=== PATIENT | female | born 1975 | race Two or more races ===

== ENCOUNTER 2017-12-30 22:59 | Inpatient (IN) | payer MEDICARE, MEDICAID ==
[~2017-12-30] VITALS: Ht 175.3 cm; Wt 50.3 kg
[2017-12-30 23:33] LABS: Basophils # (auto) 0 uL; Eosinophils # (auto) 0.2 uL; Hemoglobin 10.4 g/dL (12.2-16.2); Lymphocytes # (auto) 1.6 uL; Neutrophils # (auto) 3.1 uL; Nucleated Red Blood Cells % 0.1 %
[2017-12-30 23:35] LABS: Basophils % (auto) 0.7 % (0.0-2.0); Eosinophils % (auto) 4.1 % (0.0-7.0); Hematocrit 31.9 % (36.0-46.0); Lymphocytes % (auto) 30.2 % (10.0-50.0); Mean Corpuscular Hemoglobin 25.6 pg (28.0-32.0); Mean Corpuscular Hgb Conc. 32.6 g/dL (32.0-36.0); Mean Corpuscular Volume 78.4 fL (80.0-100.0); Monocytes # (auto) 0.4 uL; Monocytes % (auto) 8.1 % (0.0-12.0); Neutrophils % (auto) 56.9 % (37.0-80.0); Platelet Count (auto) 197 10^3/uL (140-450); Red Blood Cells 4.07 10^6/uL (4.0-5.20); Red Cell Distribution Width 16.4 % (11.8-14.3); White Blood Cell 5.4 10^3/uL (4.4-10.8)
[2017-12-30 23:51] LABS: Albumin 2.9 g/dL (3.4-5.0); BUN/Creatinine Ratio 30.8; Calcium 7.6 mg/dL (8.5-10.1); Potassium 3.4 mmol/L (3.5-5.1)
[2017-12-30 23:54] LABS: Bilirubin, Total 0.2 mg/dL (0.2-1.0); Total Protein 6.5 g/dL (6.4-8.2)
[2017-12-31] MEDS ORDERED: ASPirin 81 mg TAB ONE (00:06)
[2017-12-31] MEDS ORDERED: ASPirin-EC 325mg tab PO ONE (00:15)
[2017-12-31] MEDS ORDERED: ACETAMINOPHEN 325 MG TAB PO PRN (03:30)
[2017-12-31] MEDS ORDERED: ONDANSETRON HCL 4 MG/2 ML VIAL IV PRN (03:30)
[2017-12-31] MEDS ORDERED: POTASSIUM CHL 20 Meq TABLET PO ONE (03:30)
[2017-12-31] MEDS ORDERED: TEMAZEPAM 15 MG CAP PO PRN (03:30)
[2017-12-31] MEDS ORDERED: HYDROcodone-ACET 5/325MG TAB PO PRN (03:30)
[2017-12-31] MEDS ORDERED: ENOXAPARIN SOD 40 MG/0.4 ML SYRINGE SC SCH (03:30)
[2017-12-31] MEDS ORDERED: DOCUSATE SOD 100 MG CAP PO PRN (03:30)
[2017-12-31] MEDS: SODIUM CHLORIDE 0.9% 1,000 ML IV SCH ×2 (03:54→17:02)
[2017-12-31 05:15] VITALS: BP 148/103
[2017-12-31] MEDS: LEVOTHYROXINE SODIUM 100 MCG TAB PO SCH (06:31)
[2017-12-31 09:36] VITALS: BP 155/109
[2017-12-31] MEDS: ASPirin 81 mg TAB PO SCH (10:41)
[2017-12-31] MEDS: FAMOTIDINE 20 MG TAB PO SCH ×2 (10:41→20:57)
[2017-12-31] MEDS: LEVETIRACETAM 500 MG TAB PO SCH ×2 (10:41→20:57)
[2017-12-31] MEDS: ENOXAPARIN SOD 30 MG/0.3 ML SYRINGE SC SCH (10:45)
[2017-12-31] MEDS ORDERED: OXYB5TAB61 PO (13:06)
[2017-12-31] MEDS ORDERED: NITR-52 PO (13:06)
[2017-12-31] MEDS ORDERED: BISA10SU14 RE (13:06)
[2017-12-31] MEDS ORDERED: PAR20T PO (13:06)
[2017-12-31] MEDS ORDERED: TIZA4CAP PO (13:06)
[2017-12-31] MEDS ORDERED: AMOX-263 PO (13:06)
[2017-12-31] MEDS ORDERED: LEVE500T22 PO (13:06)
[2017-12-31] MEDS ORDERED: LEVO100T8 PO (13:06)
[2017-12-31 13:08] LABS: Urine Bacteria NONE SEEN /hpf (None Seen); Urine Blood Negative /uL (Negative); Urine Specific Gravity 1.008 (1.001-1.035); Urine WBC 2 /hpf (0 - 5)
[2017-12-31 13:22] LABS: Alcohol, Urine < 3.0 mg/dL (0-5); Amphetamine Screen, Urine NEGATIVE (NEGATIVE); Barbiturate Scree,Urine NEGATIVE (NEGATIVE); Benzodiazephine Screen, Urine NEGATIVE (NEGATIVE); Cannabinoid Screen, Urine NEGATIVE (NEGATIVE); Cocaine Screen, Urine NEGATIVE (NEGATIVE); Opiate Scree,Urine NEGATIVE (NEGATIVE); Phencyclidine Screen, Urine NEGATIVE (NEGATIVE)
[2017-12-31] MEDS ORDERED: OXYBUTYNIN CHL 5 MG TAB PO SCH (14:00)
[2017-12-31] MEDS ORDERED: OXYB15TA12 PO (15:12)
[2017-12-31] MEDS ORDERED: ARTIFICIAL TEARS 15ml EACHEYE PRN (15:30)
[2017-12-31 17:14] VITALS: BP 121/75
[2017-12-31] MEDS: BISACODYL 10 MG RECT SUPP PR SCH (20:37)
[2017-12-31] MEDS: OXYBUTYNIN CHL 5 MG TAB PO SCH (20:57)
[2017-12-31 21:46] VITALS: BP 93/64
[2017-12-31] MEDS: TIZANIDINE 4 MG PO SCH (22:00)
[2018-01-01 04:30] VITALS: BP 105/71
[2018-01-01] MEDS: SODIUM CHLORIDE 0.9% 1,000 ML IV SCH (05:50)
[2018-01-01] MEDS: OXYBUTYNIN CHL 5 MG TAB PO SCH ×3 (05:50→20:45)
[2018-01-01] MEDS: LEVOTHYROXINE SODIUM 100 MCG TAB PO SCH (05:50)
[2018-01-01 06:36] LABS: Basophils # (auto) 0 uL; Eosinophils # (auto) 0.2 uL; Mean Corpuscular Hgb Conc. 33.2 g/dL (32.0-36.0); Red Cell Distribution Width 16.5 % (11.8-14.3)
[2018-01-01 06:39] LABS: Basophils % (auto) 0.8 % (0.0-2.0); Hematocrit 32.5 % (36.0-46.0); Hemoglobin 10.8 g/dL (12.2-16.2); Lymphocytes % (auto) 33.9 % (10.0-50.0); Mean Corpuscular Hemoglobin 25.9 pg (28.0-32.0); Mean Corpuscular Volume 78.1 fL (80.0-100.0); Monocytes # (auto) 0.5 uL; Neutrophils # (auto) 3.1 uL; Neutrophils % (auto) 52.3 % (37.0-80.0); Platelet Count (auto) 205 10^3/uL (140-450); Red Blood Cells 4.17 10^6/uL (4.0-5.20); White Blood Cell 5.9 10^3/uL (4.4-10.8)
[2018-01-01 06:55] LABS: Calcium 7.7 mg/dL (8.5-10.1); Potassium 3.5 mmol/L (3.5-5.1)
[2018-01-01 07:00] LABS: Bilirubin, Total 0.3 mg/dL (0.2-1.0); Total Protein 6.6 g/dL (6.4-8.2)
[2018-01-01 09:00] VITALS: BP 107/70
[2018-01-01] MEDS: ASPirin 81 mg TAB PO SCH (09:52)
[2018-01-01] MEDS: FAMOTIDINE 20 MG TAB PO SCH ×2 (09:53→20:47)
[2018-01-01] MEDS: LEVETIRACETAM 500 MG TAB PO SCH ×2 (09:54→20:45)
[2018-01-01] MEDS: PARoxetine 20 MG TAB PO SCH (09:55)
[2018-01-01] MEDS: ENOXAPARIN SOD 30 MG/0.3 ML SYRINGE SC SCH (09:56)
[2018-01-01] MEDS: TIZANIDINE 4 MG PO SCH ×2 (09:57→20:45)
[2018-01-01] MEDS ORDERED: PARoxetine 20 MG TAB PO SCH (10:00)
[2018-01-01 12:07] VITALS: BP 154/96
[2018-01-01 17:00] VITALS: BP 165/90
[2018-01-01 17:15] VITALS: BP 123/77
[2018-01-01] MEDS ORDERED: LORazepam 2MG/ML-1ML VIAL IV PRN (17:45)
[2018-01-01 18:34] LABS: Cholesterol 136 mg/dL (< 200); HDL Cholesterol 51 mg/dL (40-59); LDL Cholesterol 80 mg/dL (< 100); Triglycerides 88 mg/dL (< 150)
[2018-01-01] MEDS: BISACODYL 10 MG RECT SUPP PR SCH (20:47)
[2018-01-01 21:42] VITALS: BP 137/99
[2018-01-01] MEDS ORDERED: ATORVASTATIN 20 MG TAB PO SCH (22:00)
[2018-01-02] MEDS: SODIUM CHLORIDE 0.9% 1,000 ML IV SCH ×3 (01:53→21:49)
[2018-01-02 05:06] VITALS: BP 131/99
[2018-01-02] MEDS: LEVOTHYROXINE SODIUM 100 MCG TAB PO SCH (06:09)
[2018-01-02] MEDS: OXYBUTYNIN CHL 5 MG TAB PO SCH ×3 (06:09→21:49)
[2018-01-02 09:00] VITALS: BP 127/82
[2018-01-02] MEDS ORDERED: ASPirin 81 mg TAB PO SCH (10:00)
[2018-01-02] MEDS: FAMOTIDINE 20 MG TAB PO SCH ×2 (10:40→21:48)
[2018-01-02] MEDS: ENOXAPARIN SOD 30 MG/0.3 ML SYRINGE SC SCH (10:40)
[2018-01-02] MEDS: PARoxetine 20 MG TAB PO SCH (10:41)
[2018-01-02] MEDS: TIZANIDINE 4 MG PO SCH ×2 (10:42→21:49)
[2018-01-02] MEDS: LEVETIRACETAM 500 MG TAB PO SCH ×2 (10:42→21:49)
[2018-01-02 13:00] VITALS: BP 127/77
[2018-01-02 17:00] VITALS: BP 132/93
[2018-01-02] MEDS: BISACODYL 10 MG RECT SUPP PR SCH (20:44)
[2018-01-02 21:51] VITALS: BP 150/95
[2018-01-03 04:46] VITALS: BP 145/95
[2018-01-03] MEDS: OXYBUTYNIN CHL 5 MG TAB PO SCH ×2 (06:15→14:38)
[2018-01-03] MEDS: LEVOTHYROXINE SODIUM 100 MCG TAB PO SCH (06:15)
[2018-01-03 09:00] VITALS: BP 151/112
[2018-01-03] MEDS: FAMOTIDINE 20 MG TAB PO SCH (09:57)
[2018-01-03] MEDS: PARoxetine 20 MG TAB PO SCH (09:58)
[2018-01-03] MEDS: TIZANIDINE 4 MG PO SCH (09:58)
[2018-01-03] MEDS: ENOXAPARIN SOD 30 MG/0.3 ML SYRINGE SC SCH (09:59)
[2018-01-03] MEDS: LEVETIRACETAM 500 MG TAB PO SCH (09:59)
[2018-01-03] MEDS: SODIUM CHLORIDE 0.9% 1,000 ML IV SCH (11:25)
[2018-01-03 13:17] VITALS: BP 106/75
[2018-01-03 15:00] VITALS: BP 106/75
== END 2018-01-03 16:12 | disposition home or self-care (01) | DRG 91 ==
LOC: EDBD 22:59 → ER 23:05 → OVERFLOW 23:06 → WEST WING 12-31 04:50
PROVIDERS: ADMIT Nurse Practitioner; ATTEND Family Medicine
DX: R29.810 Facial weakness (principal); G82.50 Quadriplegia, unspecified; E44.0 Moderate protein-calorie malnutrition; Z68.1 Body mass index [BMI] 19.9 or less, adult; G95.9 Disease of spinal cord, unspecified; R56.9 Unspecified convulsions; E87.5 Hyperkalemia; F32.9 Major depressive disorder, single episode, unspecified; R33.9 Retention of urine, unspecified; F41.9 Anxiety disorder, unspecified; E03.9 Hypothyroidism, unspecified; Z79.899 Other long term (current) drug therapy; Z82.49 Family history of ischemic heart disease and other diseases of the circulatory system; Z82.5 Family history of asthma and other chronic lower respiratory diseases; Z83.3 Family history of diabetes mellitus; R47.81 Slurred speech
CPT/HCPCS: 36415; 70450; 71045; 80053; 80061; 80307; 81001; 81025; 85025; 93005; 93306; 93886; 95819; 96372